=== PATIENT | female | born 1970 | race Caucasian/White ===

== ENCOUNTER 2016-10-21 14:37 | Inpatient (IN) | payer BC ==
[~2016-10-21] VITALS: Ht 162.6 cm; Wt 89.8 kg
[2016-10-21 15:37] LABS: BASOPHIL % 0.1 % (0-2)
[2016-10-21 15:49] LABS: RED CELL DISTRIBUTION WIDTH 20.4 % (11.5-14.5)
[2016-10-21 15:50] LABS: PLATELET COUNT 564 x10^3mcL (130-400)
[2016-10-21 15:51] LABS: CALCIUM 8.7 mg/dL (8.5-10.1); CARBON DIOXIDE 28.3 mmol/L (21-32); CHLORIDE SERUM 102 mmol/L (98-107); CREATININE SERUM 0.7 mg/dL (0.6-1.0); GFR1 > 60 mL/min; GLUCOSE SERUM 87 mg/dL (74-106); POTASSIUM SERUM 3.8 mmol/L (3.5-5.1); SODIUM SERUM 140 mmol/L (136-145)
[2016-10-21 15:55] LABS: ALBUMIN 3.6 g/dL (3.4-5.0); ALKALINE PHOSPHATASE 85 U/L (46-116); ALT/SGPT 18 U/L (14-59); AST/SGOT 8 U/L (15-37); BILIRUBIN TOTAL 0.3 mg/dL (0.20-1.00); TOTAL PROTEIN, SERUM 7.7 g/dL (6.4-8.2)
[2016-10-21 16:05] LABS: rbc morphology (normal/abnorm) ABNORMAL (NORMAL)
[2016-10-21 16:06] LABS: target cell (codocyte) 1+
[2016-10-21 16:07] LABS: ovalocyte/elliptocyte 2+; schistocyte (helmet cell) 1+
[2016-10-21 16:08] LABS: PATH REVIEW for HEMA YES
[2016-10-21] MEDS ORDERED: ORTHO MICRONO0.35 MG PO (17:13)
[2016-10-21 17:50] VITALS: BP 151/85
[2016-10-21 18:26] LABS: CHOLESTEROL/HDL RATIO 3.1
[2016-10-21 18:36] LABS: FREE T4 1.1 ng/dL (0.76-1.46); FREE THYROXINE INDEX 2.7 ug/dL (1.4-4.5); T4(THYROXINE) 7.9 ug/dL (4.7-13.3)
[2016-10-21 18:37] LABS: T3 TOTAL 1.06 ng/mL
[2016-10-21 18:45] LABS: MAGNESIUM 1.9 mg/dL (1.8-2.4); PHOSPHOROUS 4.1 mg/dL (2.5-4.9)
[2016-10-21 21:07] VITALS: BP 120/68
== END 2016-10-21 22:07 | disposition left against medical advice (07) | DRG 392 ==
LOC: ED 14:37 → DU 16:11
PROVIDERS: Emergency Medicine; ADMIT Family Medicine
DX: K21.9 Gastro-esophageal reflux disease without esophagitis (principal); D25.9 Leiomyoma of uterus, unspecified; D50.9 Iron deficiency anemia, unspecified; D69.6 Thrombocytopenia, unspecified; M25.78 Osteophyte, vertebrae; E66.9 Obesity, unspecified; Z68.34 Body mass index [BMI] 34.0-34.9, adult
CPT/HCPCS: 83880; 84439; 85060; J7030; J7050; Q0092; Q0163